=== PATIENT | female | born 1985 | race American Indian/Alaskan Native ===

== ENCOUNTER 2019-09-18 18:44 | Emergency (ER) | payer SELFPAY ==
[2019-09-18 19:39] VITALS: BP 179/94
--- NOTE | 2019-09-18 20:12 | Emergency Department Report ---
Minor Respiratory - HPI Chief Complaint: Upper Respiratory Infection Stated Complaint: SORE THROAT/COLD SYMPTOMS Time Seen by Provider: 09/18/19 19:59 Duration: 3 Days Pain Location: Throat, Nose Severity: moderate Minor Respiratory: Yes Rhinorrhea, Yes Sore Throat, Yes Able to Tolerate Fluids, Yes Cough, Yes Sick Contacts, No Ear Pain, No Hemoptysis, No Chest Pain, No Shortness of Breath, No Fever Other History: This is a 34 y.o. F. that presents to the ER with cough, congestion, and chills for 3 days. Patient states she didn't know what to take because she have hypertension. She is currently taking NSAIDs for possible fever. Denies chest pain, palpitations, sore throat, weakness, nausea, vomiting, diarrhea, myalgia, or abdominal pain. ED Review of Systems ROS: Stated complaint: SORE THROAT/COLD SYMPTOMS Other details as noted in HPI Constitutional: chills. denies: fever ENT: congestion. denies: ear pain, throat pain, dental pain Respiratory: cough. denies: shortness of breath, wheezing Cardiovascular: denies: chest pain, palpitations Gastrointestinal: denies: abdominal pain, nausea, diarrhea Genitourinary: denies: urgency, dysuria, discharge Musculoskeletal: denies: back pain, joint swelling, arthralgia Skin: denies: rash, lesions Neurological: denies: headache, weakness, paresthesias Psychiatric: denies: anxiety, depression ED Past Medical Hx - Past Medical History Previous Medical History?: No - Surgical History Past Surgical History?: No - Social History Smoking Status: Never Smoker Substance Use Type: Alcohol - Medications Home Medications: Home Medications Medication Instructions Recorded Confirmed Last Taken Type Chlorphen/Dm/Acetaminophen/GG 1 each PO Q4H #20 tb.cp.seq 09/18/19 Unknown Rx [Coricidin Hbp Day-Night Pack] Fluticasone [Flonase] 1 spray NS QDAY #1 bottle 09/18/19 Unknown Rx Loratadine [Claritin] 10 mg PO DAILY #30 tablet 09/18/19 Unknown Rx Minor Respiratory Exam - Exam General: Vital signs noted. No distress. Alert and acting appropriately. HEENT: Yes Pharyngeal Erythema (erythematous posterior pharynx, uvula midline), Yes Moist Mucous Membranes, Yes Rhinorrhea (turbinates congested with clear discharge), No Pharyngeal Exudates, No Conjuctival Injection, No Frontal Tenderness, No Maxillary Tenderness Ear: Neither TM Bulge, Neither TM Erythema, Neither EAC Pain, Neither EAC Discharge Neck: Yes Supple, No Adenopathy Lungs: Yes Good Air Exchange, No Wheezes, No Ronchi, No Stridor, No Cough, No Labored Respirations, No Retractions, No Use of Accessory Muscles, No Other Abnormal Lung Sounds Heart: Yes Regular, No Murmur Abdomen: Yes Normal Bowel Sounds, No Tenderness, No Peritoneal Signs Skin: No Rash, No Edema Neurologic: Alert and oriented, no deficits. Musculoskeletal: Unremarkable. ED Course Vital Signs 09/18/19 09/18/19 19:13 19:58 Temperature 98.3 F 98.3 F Pulse Rate 86 81 Respiratory 18 18 Rate Blood Pressure 179/94 179/94 O2 Sat by Pulse 96 100 Oximetry ED Medical Decision Making - Medical Decision Making This is a 34-year-old female that presents with URI symptoms. Patient is stable and was examined by me. PMH of HTN. Vitals are normal and no acute distress. Mild congestion on exam with signs of post nasal drip. Upper respiratory infection and rhinitis. Start coricidin, flonase, and claritin. Patient was instructed to Follow-up with a primary care doctor in 3-5 days or if symptoms worsen and continue return to emergency room as soon as possible. At time of discharge, the patient does not seem toxic or ill in appearance. Patient agrees to discharge treatment plan of care. No further questions noted by the patient. Critical care attestation.: If time is entered above; I have spent that time in minutes in the direct care of this critically ill patient, excluding procedure time. ED Disposition Clinical Impression: Rhinitis Qualifiers: Rhinitis type: acute Qualified Code(s): J00 - Acute nasopharyngitis [common cold] Upper respiratory infection Qualifiers: URI type: acute nasopharyngitis (common cold) Qualified Code(s): J00 - Acute nasopharyngitis [common cold] Disposition: TO HOME OR SELFCARE Is pt being admited?: No Condition: Stable Instructions: Upper Respiratory Infection (ED), Allergic Rhinitis (ED), Cold Symptoms (ED) Prescriptions: Loratadine [Claritin] 10 mg PO DAILY #30 tablet Chlorphen/Dm/Acetaminophen/GG [Coricidin Hbp Day-Night Pack] 1 each PO Q4H #20 tb.cp.seq Fluticasone [Flonase] 1 spray NS QDAY #1 bottle Referrals: CHRIS ASENCIO [Primary Care Provider] - 3-5 Days Forms: Work/School Release Form(ED) Time of Disposition: 20:35
== END 2019-09-18 20:00 | disposition home or self-care (01) ==
LOC: ED 18:44
DX: J31.0 Chronic rhinitis (principal); J06.9 Acute upper respiratory infection, unspecified; Z79.899 Other long term (current) drug therapy

== ENCOUNTER 2019-12-26 23:28 | Emergency (ER) | payer SELFPAY ==
[2019-12-27] MEDS ORDERED: ONDANSETRON 4 MG ODT TAB PO ONE (06:00)
[2019-12-27] MEDS ORDERED: KETOROLAC 60 MG/2 ML INJ IM ONE (06:00)
--- NOTE | 2019-12-27 06:07 | Emergency Department Report ---
ED Headache HPI - General Chief Complaint: Headache Stated Complaint: HEADACHE LOWER LT SIDE BACK PAIN Time Seen by Provider: 12/27/19 05:22 Source: patient, RN notes reviewed Exam Limitations: no limitations - History of Present Illness Initial Comments: This is a 34-year-old -[place] female who presents to the emergency room with a headache for 5 days intermittently. Past medical history of hypertension and sciatica. Patient states her primary care doctor at [facility] took her off of her blood pressure medication 3 months ago. She reports occasional headaches when her blood pressure is elevated. Patient states she is currently not taking anything for symptomatic relief. Reports a history of sciatica and believes she is possibly having a flare. Patient reports left lower back pain that is intermittent and nonradiating stabbing intensity. Patient denies recent injury, visual changes, dizziness, fever, chills, weakness, change in urinary/bowel pattern, or paresthesias. Timing/Duration: 24 hours, constant Quality: stabbing, throbbing Head Injury Location: global Recent Head Trauma: no recent headache/trauma, occasional headaches Modifying Factors: improves with: movement Associated Symptoms: denies symptoms Allergies/Adverse Reactions: Allergies No Known Allergies Allergy (Unverified 09/18/19 18:56) Home Medications: Ambulatory Orders Chlorphen/Dm/Acetaminophen/GG [Coricidin Hbp Day-Night Pack] 1 each PO Q4H #20 tb.cp.seq 09/18/19 Fluticasone [Flonase] 1 spray NS QDAY #1 bottle 09/18/19 Loratadine (Nf) [Claritin] 10 mg PO DAILY #30 tablet 09/18/19 Butalb/Acetaminophen/Caffeine [Fioricet 50-300-40 mg CAP] 1 cap PO Q8HR PRN #15 cap 12/27/19 Methocarbamol [Robaxin] 500 mg PO BID PRN #15 tablet 12/27/19 Naproxen [Naprosyn] 500 mg PO BID PRN #20 tablet 12/27/19 ED Review of Systems ROS: Stated complaint: HEADACHE LOWER LT SIDE BACK PAIN Other details as noted in HPI Constitutional: denies: chills, fever Respiratory: denies: cough, shortness of breath, wheezing Cardiovascular: denies: chest pain, palpitations Gastrointestinal: denies: abdominal pain, nausea, diarrhea Musculoskeletal: back pain (Left lower back pain). denies: joint swelling, ar thralgia Skin: denies: rash, lesions Neurological: headache. denies: weakness, paresthesias Psychiatric: denies: anxiety, depression ED Past Medical Hx - Past Medical History Previous Medical History?: Yes Hx Hypertension: Yes (taken off meds) - Surgical History Past Surgical History?: No - Social History Smoking Status: Never Smoker Substance Use Type: Alcohol - Medications Home Medications: Home Medications Medication Instructions Recorded Confirmed Last Taken Type Chlorphen/Dm/Acetaminophen/GG 1 each PO Q4H #20 tb.cp.seq 09/18/19 Unknown Rx [Coricidin Hbp Day-Night Pack] Fluticasone [Flonase] 1 spray NS QDAY #1 bottle 09/18/19 Unknown Rx Loratadine (Nf) [Claritin] 10 mg PO DAILY #30 tablet 09/18/19 Unknown Rx Butalb/Acetaminophen/Caffeine 1 cap PO Q8HR PRN #15 cap 12/27/19 Unknown Rx [Fioricet 50-300-40 mg CAP] Methocarbamol [Robaxin] 500 mg PO BID PRN #15 tablet 12/27/19 Unknown Rx Naproxen [Naprosyn] 500 mg PO BID PRN #20 tablet 12/27/19 Unknown Rx ED Physical Exam - General Limitations: No Limitations General appearance: alert, in no apparent distress, obese (Morbidly obese) - Head Head exam: Present: atraumatic, normocephalic - Eye Eye exam: Present: normal appearance - ENT ENT exam: Present: mucous membranes moist - Neck Neck exam: Present: normal inspection - Respiratory Respiratory exam: Present: normal lung sounds bilaterally. Absent: respiratory distress - Cardiovascular Cardiovascular Exam: Present: regular rate, normal rhythm. Absent: systolic murmur, diastolic murmur, rubs, gallop - GI/Abdominal GI/Abdominal exam: Present: soft, normal bowel sounds. Absent: distended, tenderness, guarding, rebound, rigid - Extremities Exam Extremities exam: Present: normal inspection - Back Exam Back exam: Present: paraspinal tenderness (Left L-spine paraspinal tenderness, negative straight leg test, no midline tenderness, no step-off, no deformity). Absent: full ROM (Limited range of motion secondary to pain), tenderness, muscle spasm, vertebral tenderness, rash noted - Neurological Exam Neurological exam: Present: alert, oriented X3, normal gait - Psychiatric Psychiatric exam: Present: normal affect, normal mood - Skin Skin exam: Present: warm, dry, intact, normal color. Absent: rash ED Course Vital Signs 12/26/19 12/27/19 12/27/19 23:39 06:29 06:31 Temperature 98.7 F 98.6 F Pulse Rate 98 H 65 Respiratory 18 18 18 Rate Blood Pressure 169/100 Blood Pressure 114/52 [Left] O2 Sat by Pulse 97 95 Oximetry ED Medical Decision Making - Medical Decision Making This is a 34-year-old female day presents to the emergency room with migraine headache and left lower back pain. Past medical history of hypertension and sciatica. Negative midline tenderness on exam. Denies change in urinary or bowel pattern, visual changes, recent injury, dizziness, fever, chills, weakness, or paresthesias. There is low suspicion of fracture, brain tumor masses, or osteomyelitis. Imaging and labs are deferred at this time. Given analgesics and anti-emetics while in ER. Monitored and reports improved headache. Will start medication for migraines and acute arthralgia. Start Fioricet, naproxen, and Robaxin. Patient instructed to follow-up with her primary care doctor at [facility]. Patient was given strict return instructions. Critical care attestation.: If time is entered above; I have spent that time in minutes in the direct care of this critically ill patient, excluding procedure time. ED Disposition Clinical Impression: Morbid obesity Migraine Qualifiers: Migraine type: without aura Status migrainosus presence: with status migrainosus Intractability: not intractable Qualified Code(s): G43.001 - Migraine without aura, not intractable, with status migrainosus Low back pain Qualifiers: Chronicity: acute Back pain laterality: left Sciatica presence: without sciatica Qualified Code(s): M54.5 - Low back pain Disposition: -01 TO HOME OR SELFCARE Is pt being admited?: No Condition: Stable Instructions: Migraine Headache (ED), Acute Low Back Pain (ED) Additional Instructions: Take medication at start of headache. Moderate caffeine intake. Eat at scheduled times or 3 meals a day with snacks. Rest, Use ice or heat on affected area for 20 minutes and off for [address] heavy machinery while taking muscle relaxers because they may cause drowsiness. Follow up with primary care provider in 24-72 hours. Prescriptions: Butalb/Acetaminophen/Caffeine [Fioricet 50-300-40 mg CAP] 1 cap PO Q8HR PRN #15 cap PRN Reason: Migraine Headache Naproxen [Naprosyn] 500 mg PO BID PRN #20 tablet PRN Reason: Pain , Severe (7-10) Methocarbamol [Robaxin] 500 mg PO BID PRN #15 tablet PRN Reason: Muscle Spasm Referrals: [facility] [Provider Group] - 3-[address] [facility] [Outside] - 3-5 Days Forms: Work/School Release Form(ED) Time of Disposition: 06:37
[2019-12-27 06:30] VITALS: BP 114/52
== END 2019-12-27 06:44 | disposition home or self-care (01) ==
LOC: ED 23:28
DX: G43.001 Migraine without aura, not intractable, with status migrainosus (principal); M54.5 Low back pain; E66.01 Morbid (severe) obesity due to excess calories; Z68.42 Body mass index [BMI] 45.0-49.9, adult; I10 Essential (primary) hypertension; Z79.899 Other long term (current) drug therapy
CPT/HCPCS: 96372; 99282; J1885; Q0162

== ENCOUNTER 2021-04-10 05:30 | Emergency (ER) | payer OTHER ==
[2021-04-10 06:05] VITALS: BP 140/72
[2021-04-10] MEDS ORDERED: KETOROLAC 60 MG/2 ML INJ IM ONE (08:18)
[2021-04-10] MEDS ORDERED: predniSONE 20 MG TAB PO ONE (08:18)
--- NOTE | 2021-04-10 10:43 | Emergency Department Report ---
ED Back Pain/Injury HPI - General Chief Complaint: Back Pain/Injury Stated Complaint: BACK PAIN Time Seen by Provider: 04/10/21 08:08 Source: patient Limitations: No Limitations - History of Present Illness Initial Comments: This is a 35-year-old female nontoxic, well nourished in appearance, no acute signs of distress presents to the ED with c/o of acute on chronic lower back pain. Patient stated that the past 2 days she was heavy lifting and developed this pain at work. Patient states has history of sciatica nerve pain which is similar symptoms as today. Patient states that pain radiates through to his left lower extremity. Patient denies any trauma. Denies any bladder or bowel instability. Patient denies any urinary symptoms. Denies any fever, chills, nausea, vomiting, headache, stiff neck, chest pain or shortness of breath. Patient denies any numbness or tingling. Denies any allergies. Patient stated had an MRI several years ago and was told that she has a sciatica. MD Complaint: back pain -: days(s) Similar Symptoms Previously: Yes Place: work Radiation: left leg Severity: mild Severity scale (0 -10): 8 Quality: aching Consistency: intermittent Improves With: immobilization, sitting upright Worsens With: movement, walking Context: while lifting, turning/twisting Associated Symptoms: denies other symptoms. denies: confusion, weakness, chest pain, numbness, difficulty walking, cough, difficulty urinating, diaphoresis, incontinence, fever/chills, constipation, headaches, abdominal pain, loss of appetite, malaise, nausea/vomiting, rash, seizure, shortness of breath, syncope - Related Data Previous Rx's Medication Instructions Recorded Last Taken Type Chlorphen/Dm/Acetaminophen/GG 1 each PO Q4H #20 tb.cp.seq 09/18/19 Unknown Rx [Coricidin Hbp Day-Night Pack] Fluticasone [Flonase] 1 spray NS QDAY #1 bottle 09/18/19 Unknown Rx Loratadine (Nf) [Claritin] 10 mg PO DAILY #30 tablet 09/18/19 Unknown Rx Methocarbamol [Robaxin] 500 mg PO BID PRN #15 tablet 12/27/19 Unknown Rx Butalb/Acetaminophen/Caffeine 1 cap PO Q8HR PRN #15 cap 06/17/20 Unknown Rx [Fioricet 50-300-40 mg CAP] Metoprolol [Lopressor TAB] 25 mg PO Q12H #60 tablet 06/17/20 Unknown Rx Naproxen [Naprosyn] 500 mg PO Q12H PRN #30 tablet 06/17/20 Unknown Rx Ondansetron [Zofran Odt] 4 mg PO Q6HR PRN #15 tab.rapdis 06/17/20 Unknown Rx hydrOXYzine PAMOATE [Vistaril] 25 mg PO QHS PRN #30 capsule 06/17/20 Unknown Rx hydroCHLOROthiazide [HCTZ] 25 mg PO QDAY #30 tablet 06/17/20 Unknown Rx Cyclobenzaprine [Flexeril] 10 mg PO QHS PRN #10 tablet 04/10/21 Unknown Rx Naproxen 500 mg PO Q12H PRN #12 tablet 04/10/21 Unknown Rx Allergies Allergy/AdvReac Type Severity Reaction Status Date / Time No Known Allergies Allergy Verified 04/10/21 08:17 ED Review of Systems ROS: Stated complaint: BACK PAIN Other details as noted in HPI Comment: All other systems reviewed and negative Constitutional: denies: chills, fever Eyes: denies: eye pain, eye discharge, vision change ENT: denies: ear pain, throat pain Respiratory: denies: cough, shortness of breath, wheezing Cardiovascular: denies: chest pain, palpitations Endocrine: no symptoms reported Gastrointestinal: denies: abdominal pain, nausea, diarrhea Genitourinary: denies: urgency, dysuria, discharge Musculoskeletal: back pain. denies: joint swelling, arthralgia Skin: denies: rash, lesions Neurological: denies: headache, weakness, paresthesias Psychiatric: denies: anxiety, depression Hematological/Lymphatic: denies: easy bleeding, easy bruising ED Past Medical Hx - Past Medical History Previous Medical History?: No Hx Hypertension: Yes Additional medical history: Obesity - Surgical History Past Surgical History?: No - Social History Smoking Status: Never Smoker Substance Use Type: None - Medications Home Medications: Home Medications Medication Instructions Recorded Confirmed Last Taken Type Chlorphen/Dm/Acetaminophen/GG 1 each PO Q4H #20 tb.cp.seq 09/18/19 Unknown Rx [Coricidin Hbp Day-Night Pack] Fluticasone [Flonase] 1 spray NS QDAY #1 bottle 09/18/19 Unknown Rx Loratadine (Nf) [Claritin] 10 mg PO DAILY #30 tablet 09/18/19 Unknown Rx Methocarbamol [Robaxin] 500 mg PO BID PRN #15 tablet 12/27/19 Unknown Rx Butalb/Acetaminophen/Caffeine 1 cap PO Q8HR PRN #15 cap 06/17/20 Unknown Rx [Fioricet 50-300-40 mg CAP] Metoprolol [Lopressor TAB] 25 mg PO Q12H #60 tablet 06/17/20 Unknown Rx Naproxen [Naprosyn] 500 mg PO Q12H PRN #30 tablet 06/17/20 Unknown Rx Ondansetron [Zofran Odt] 4 mg PO Q6HR PRN #15 tab.rapdis 06/17/20 Unknown Rx hydrOXYzine PAMOATE [Vistaril] 25 mg PO QHS PRN #30 capsule 06/17/20 Unknown Rx hydroCHLOROthiazide [HCTZ] 25 mg PO QDAY #30 tablet 06/17/20 Unknown Rx Cyclobenzaprine [Flexeril] 10 mg PO QHS PRN #10 tablet 04/10/21 Unknown Rx Naproxen 500 mg PO Q12H PRN #12 tablet 04/10/21 Unknown Rx ED Physical Exam - General Limitations: No Limitations General appearance: alert, in no apparent distress - Head Head exam: Present: atraumatic, normocephalic - Eye Eye exam: Present: normal appearance - Neck Neck exam: Present: normal inspection, full ROM - Respiratory Respiratory exam: Present: normal lung sounds bilaterally. Absent: respiratory distress, wheezes, rales, rhonchi, stridor, chest wall tenderness, accessory muscle use, decreased breath sounds, prolonged expiratory - Cardiovascular Cardiovascular Exam: Present: regular rate, normal rhythm, normal heart sounds. Absent: bradycardia, tachycardia, irregular rhythm, systolic murmur, diastolic murmur, rubs, gallop - GI/Abdominal GI/Abdominal exam: Present: soft, normal bowel sounds. Absent: distended, tenderness, guarding, rebound, rigid, diminished bowel sounds - Extremities Exam Extremities exam: Present: normal inspection, full ROM, normal capillary refill. Absent: tenderness, calf tenderness - Back Exam Back exam: Present: normal inspection, full ROM, paraspinal tenderness (lumbar paraspinal ). Absent: tenderness, CVA tenderness (R), CVA tenderness (L), muscle spasm, vertebral tenderness, rash noted - Expanded Back Exam Expanded Back exam: Absent: saddle anesthesia Back exam: Negative Straight Leg Raising: Left, Right - Neurological Exam Neurological exam: Present: alert, oriented X3, normal gait - Psychiatric Psychiatric exam: Present: normal affect, normal mood - Skin Skin exam: Present: warm, dry, intact, normal color. Absent: rash ED Course Vital Signs 04/10/21 05:59 Temperature 99.0 F Pulse Rate 79 Respiratory 18 Rate Blood Pressure 140/72 O2 Sat by Pulse 99 Oximetry - Reevaluation(s) Reevaluation #1: 04/10/21 10:42 Patient is speaking in full sentences with no signs of distress noted. ED Medical Decision Making - Lab Data Lab Results 04/10/21 Range/Units 11:16 Urine Color Yellow (Yellow) Urine Turbidity Slightly-cloudy (Clear) Urine pH 5.0 (5.0-7.0) Ur Specific [place] 1.026 (1.003-1.030) Urine Protein <15 mg/dl (Negative) mg/dL Urine Glucose (UA) Neg (Negative) mg/dL Urine Ketones Neg (Negative) mg/dL Urine Blood Neg (Negative) Urine Nitrite Neg (Negative) Urine Bilirubin Neg (Negative) Urine Urobilinogen < 2.0 (<2.0) mg/dL Ur Leukocyte Esterase Neg (Negative) Urine WBC (Auto) 3.0 (0.0-6.0) /HPF Urine RBC (Auto) 2.0 (0.0-6.0) /HPF U Epithel Cells (Auto) 4.0 (0-13.0) /HPF Urine Bacteria (Auto) 2+ (Negative) /HPF Urine Mucus Few /HPF Urine HCG, Qual Negative (Negative) - Medical Decision Making This is a 35-year-old female that presents with low back strain. Patient is stable was examined by me. There is no spinal tenderness. There is no cauda equina syndrome during examination. No bladder or bowel instability. Patient received Toradol 60 mg IM and prednisone in the ED which stated that her symptoms has resolved and subsided. Patient is discharged with muscle relaxant and Motrin. Patient was instructed not to operate any machinery while taking muscle relaxant as they cause her drowsiness. Patient was referred to Follow-up with a primary care doctor in 3-5 days or if symptoms worsen and continue return to emergency room as soon as possible. At time of discharge, the patient does not seem toxic or ill in appearance. No acute signs of distress noted. Patient agrees to discharge treatment plan of care. No further questions noted by the patient. This chart is dictated with using [employer] Dictation [employer] Critical care attestation.: If time is entered above; I have spent that time in minutes in the direct care of this critically ill patient, excluding procedure time. ED Disposition Clinical Impression: Low back strain Qualifiers: Encounter type: initial encounter Qualified Code(s): S39.012A - Strain of muscle, fascia and tendon of lower back, initial encounter Disposition: TO HOME OR SELFCARE Is pt being admited?: No Does the pt Need Aspirin: No Condition: Stable Instructions: Lumbar Strain, Cyclobenzaprine tablets Additional Instructions: Follow-up with your primary care doctor in 3-5 days or if symptoms worsen such as bladder or bowel stability, chest pain, short of breath, numbness or tingling sensation in extremities, headache, dizziness, visual changes, nausea vomiting, or abdominal pain, return back to emergency room as was possible. Take naproxen and Flexeril as prescribed. Do not operate heavy machinery while taking Flexeril due to sedation Prescriptions: Cyclobenzaprine [Flexeril] 10 mg PO QHS PRN #10 tablet PRN Reason: Muscle Spasm Naproxen 500 mg PO Q12H PRN #12 tablet PRN Reason: Pain , Severe (7-10) Referrals: LASHAUN ROBERSON MD [Primary Care Provider] - 3-5 Days MELONIE YANEZ MD [Staff Physician] - 3-5 Days Forms: Work/School Release Form(ED) Time of Disposition: 11:46
[2021-04-10 11:36] LABS: Bacteria,Urine 2+ /HPF (Negative); Bilirubin,Urine NEG (Negative); Blood,Urine NEG (Negative); Color,Urine Yellow (Yellow); Mucus,Urine FEW /HPF; Protein,Urine <15 mg/dL mg/dL (Negative); Urobilinogen,Urine < 2.0 mg/dL (<2.0)
[2021-04-10 11:40] LABS: HCG Qualitative,Urine Negative (Negative)
== END 2021-04-10 12:03 | disposition home or self-care (01) ==
LOC: ED 05:30
DX: S39.012A Strain of muscle, fascia and tendon of lower back, initial encounter (principal); I10 Essential (primary) hypertension; E66.9 Obesity, unspecified; Z79.899 Other long term (current) drug therapy; Z68.42 Body mass index [BMI] 45.0-49.9, adult; X50.0XXA Overexertion from strenuous movement or load, initial encounter; Y93.89 Activity, other specified; Y92.89 Other specified places as the place of occurrence of the external cause; Y99.0 Civilian activity done for income or pay
CPT/HCPCS: 81001; 81025; 96372; 99283; J1885; J7512